=== PATIENT | male | born 1980 | race Caucasian/White ===

== ENCOUNTER 2017-03-30 13:42 | Emergency (ER) | payer MEDICAID ==
[~2017-03-30] VITALS: Ht 175.3 cm; Wt 106.0 kg
[2017-03-30 13:44] VITALS: BP 137/87
== END 2017-03-30 14:53 | disposition home or self-care (01) ==
LOC: ED 14:37
DX: L03.213 Periorbital cellulitis (principal)
CPT/HCPCS: 99283

== ENCOUNTER 2018-01-09 16:09 | Emergency (ER) | payer MEDICAID ==
[~2018-01-09] VITALS: Ht 175.3 cm; Wt 101.3 kg
[2018-01-09 16:13] VITALS: BP 127/84
[2018-01-09 16:54] LABS: MEAN CORPUSCULAR HEMOGLOBIN 28.1 pg (27.5-34.5); MEAN CORPUSCULAR HGB CONC 33.4 g/dL (33.2-36.2); MEAN CORPUSCULAR VOLUME 84.3 fL (81-97); MEAN PLATELET VOLUME 8.4 fL (7.4-10.4); PLATELET COUNT 377 x10^3/uL (130-400); RED BLOOD COUNT 5.12 x10^6/uL (4.38-5.82); RED CELL DISTRIBUTION WIDTH 13.2 % (9.4-14.8)
[2018-01-09 16:56] LABS: ALANINE AMINOTRANSFERASE 44 U/L (12-78); ALBUMIN 3.9 g/dL (3.4-5.0); ANION GAP 8 mmol/L (5-15); CALCIUM 8.6 mg/dL (8.5-10.1); CHLORIDE 103 mmol/L (98-107); CREATININE 1.04 mg/dL (0.7-1.3)
[2018-01-09 16:58] LABS: ALKALINE PHOSPHATASE 91 U/L (45-117); BILIRUBIN,TOTAL 0.2 mg/dL (0.2-1.0); TOTAL PROTEIN 8.4 g/dL (6.4-8.2)
[2018-01-09 17:10] LABS: MICROSCOPIC NOT IND
[2018-01-09 17:11] LABS: CULTURE INDICATED? NO
[2018-01-09 17:24] LABS: BASOPHILS # (AUTO) 0.05 x10^3/uL (0-0.1); BASOPHILS % (AUTO) 1 % (0-1); EOSINOPHILS # (AUTO) 0.23 x10^3/uL (0-0.4); EOSINOPHILS % (AUTO) 2 % (1-7); LYMPHOCYTES # (AUTO) 3.26 x10^3/uL (1-3.4); LYMPHOCYTES % (AUTO) 31 % (22-44); MD SCAN; MONOCYTES # (AUTO) 0.79 x10^3/uL (0.2-0.8); MONOCYTES % (AUTO) 8 % (2-9); NEUTROPHILS # (AUTO) 6.11 x10^3/uL (1.8-6.8); NEUTROPHILS % (AUTO) 59 % (42-75)
== END 2018-01-09 18:00 | disposition home or self-care (01) ==
LOC: ED 17:50
DX: R10.30 Lower abdominal pain, unspecified (principal); R19.7 Diarrhea, unspecified
CPT/HCPCS: 36415; 80053; 81003; 83690; 85025; 99284

== ENCOUNTER 2018-03-26 12:29 | Emergency (ER) | payer MEDICAID ==
[~2018-03-26] VITALS: Ht 175.3 cm; Wt 101.5 kg
[2018-03-26 12:31] VITALS: BP 146/89
[2018-03-26] MEDS ORDERED: CEFTRIAXONE 250 MG IM ONE (13:30)
[2018-03-26] MEDS ORDERED: AZITHROMYCIN 500 MG TABLET PO ONE (13:30)
[2018-03-26] MEDS ORDERED: CEFTRIAXONE 250 MG ONE (13:32)
[2018-03-26] MEDS ORDERED: LIDOCAINE-MPF 1%, 2ML ONE (13:33)
[2018-03-26] MEDS ORDERED: AZITHROMYCIN 250 MG TABLET ONE (13:35)
== END 2018-03-26 14:58 | disposition home or self-care (01) ==
LOC: ED 14:47
DX: S80.02XA Contusion of left knee, initial encounter (principal); X50.3XXA Overexertion from repetitive movements, initial encounter; Y93.01 Activity, walking, marching and hiking; Y99.8 Other external cause status; Y92.89 Other specified places as the place of occurrence of the external cause
CPT/HCPCS: 73564; 96372; 99284; J0696

== ENCOUNTER 2018-05-23 17:14 | Emergency (ER) | payer MEDICAID ==
[~2018-05-23] VITALS: Ht 175.3 cm; Wt 101.0 kg
[2018-05-23] MEDS ORDERED: HYDROcodone/APAP 5/325 TABLET PO ONE (20:00)
[2018-05-23] MEDS ORDERED: HYDROcodone/APAP 5/325 TABLET ONE (20:10)
[2018-05-23 20:20] VITALS: BP 138/84
== END 2018-05-23 20:23 | disposition home or self-care (01) ==
LOC: ED 19:56
DX: S89.91XA Unspecified injury of right lower leg, initial encounter (principal); S89.92XA Unspecified injury of left lower leg, initial encounter; X58.XXXA Exposure to other specified factors, initial encounter; Y93.89 Activity, other specified; Y92.89 Other specified places as the place of occurrence of the external cause; Y99.8 Other external cause status
CPT/HCPCS: 99284

== ENCOUNTER 2019-08-26 19:19 | Emergency (ER) | payer MEDICAID ==
[~2019-08-26] VITALS: Ht 175.3 cm; Wt 101.5 kg
--- NOTE | 2019-08-26 20:36 | NUR ---
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
--- NOTE | 2019-08-26 20:40 | NUR ---
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
--- NOTE | 2019-08-26 21:37 | NUR ---
PATIENT RESTING IN BED. WAITING FOR DR. OAKES. PATIENT HAS NO REQUESTS AT THIS TIME
--- NOTE | 2019-08-26 22:30 | NUR ---
Received report from CORIE Burris. RN to bedside, patient resting comfortably. Aware of plan of care. Awaiting lab results. Asked RN for po fluids. Informed of npo status, and verbalized understanding.
[2019-08-26 22:33] LABS: ALBUMIN 3.4 g/dL (3.4-5.0); ANION GAP 7 mmol/L (5-15); CALCIUM 8.3 mg/dL (8.5-10.1); CHLORIDE 110 mmol/L (98-107); CREATININE 0.97 mg/dL (0.7-1.3)
[2019-08-26 22:37] LABS: TROPONIN I < 0.015 ng/mL (0.000-0.045)
[2019-08-26 23:07] LABS: MD YES; MEAN CORPUSCULAR HEMOGLOBIN 28.4 pg (27.5-34.5); MEAN CORPUSCULAR HGB CONC 33.2 g/dL (33.2-36.2); MEAN CORPUSCULAR VOLUME 85.7 fL (81-97); MEAN PLATELET VOLUME 8.3 fL (7.4-10.4); PLATELET COUNT 282 x10^3/uL (130-400); RED BLOOD COUNT 4.54 x10^6/uL (4.38-5.82); RED CELL DISTRIBUTION WIDTH 12.8 % (9.4-14.8)
[2019-08-26 23:09] LABS: <PLATELET ESTIMATE> ADEQUATE; <PLT MORPHOLOGY> NORMAL PLT MORPH; <RBC MORPHOLOGY> NORMAL; EOS#(MANUAL) 0.18 x10^3/uL (0.0-0.4); EOS% (MANUAL) 2 % (1-7); LYMPH#(MANUAL) 3.86 x10^3/uL (1-3.4); LYMPHS% (MANUAL) 42 % (22-44); MONOS#(MANUAL) 0.46 x10^3/uL (0.3-2.7); MONOS% (MANUAL) 5 % (2-9); SEG#(MANUAL) 4.69 x10^3/uL (1.8-6.8); SEGS% (MANUAL) 51 % (42-75)
[2019-08-26 23:16] VITALS: BP 116/82
== END 2019-08-26 23:18 | disposition home or self-care (01) ==
LOC: ED 23:12
DX: R05 Cough (principal); R07.89 Other chest pain; Z87.891 Personal history of nicotine dependence
CPT/HCPCS: 36415; 71046; 80048; 82040; 84484; 85025; 99284

== ENCOUNTER 2020-07-12 17:42 | Emergency (ER) | payer MEDICAID ==
[~2020-07-12] VITALS: Ht 175.3 cm; Wt 106.5 kg
[2020-07-12 17:57] VITALS: BP 146/98
--- NOTE | 2020-07-12 19:03 | NUR ---
REPORT GIVEN TO ROBERT FONTENOT. PT RESTING ON GURNEY W/ CALL LIGHT IN REACH. RESP EVEN AND UNLABORED, NADN. AT BEDSIDE FOR ED EVAL.
--- NOTE | 2020-07-12 19:10 | NUR ---
Report received from CORIE Reilly. This RN to assume care. Patient being evaluated by ERP at this time.
== END 2020-07-12 19:44 | disposition home or self-care (01) ==
LOC: ED 19:38
DX: J01.00 Acute maxillary sinusitis, unspecified (principal); Z20.828 Contact with and (suspected) exposure to other viral communicable diseases; R09.81 Nasal congestion
CPT/HCPCS: 36415; 87635; 99283

== ENCOUNTER 2021-07-10 17:04 | Emergency (ER) | payer MEDICAID ==
[~2021-07-10] VITALS: Ht 175.3 cm; Wt 110.4 kg
[2021-07-10 17:07] VITALS: BP 138/87
--- NOTE | 2021-07-10 17:08 | NUR ---
[id number]
== END 2021-07-10 19:48 ==
LOC: ED 19:30
DX: R07.89 Other chest pain (principal); B02.9 Zoster without complications
CPT/HCPCS: 93005; 99283